=== PATIENT | male | born 1995 | race Caucasian/White ===

== ENCOUNTER 2017-10-12 14:44 | Emergency (ER) | payer SELFPAY, MEDICAID | END 2017-10-12 17:35 | disposition home or self-care (01) | LOC: FTE 14:44 | DX: N48.1 Balanitis (principal); F17.210 Nicotine dependence, cigarettes, uncomplicated | CPT/HCPCS: 99282 ==

== ENCOUNTER 2017-12-03 01:46 | Emergency (ER) | payer MEDICAID ==
[2017-12-03] MEDS: ACET/BUTAL/CAFF TAB PO (02:44)
== END 2017-12-03 03:38 | disposition home or self-care (01) ==
LOC: FTE 01:46
DX: R51 Headache (principal); F17.210 Nicotine dependence, cigarettes, uncomplicated
CPT/HCPCS: 70450; 99284-25